=== PATIENT | female | born 1985 | race American Indian/Alaskan Native ===

== ENCOUNTER 2017-01-07 11:54 | Emergency (ER) | payer MEDICAID ==
[2017-01-07 12:06] VITALS: BP 191/132
[2017-01-07 12:47] LABS: Basophils % (Auto) 0.4 % (0.0-1.8); Eosinophils % (Auto) 3.8 % (0.0-4.3); Hemoglobin 13.2 gm/dl (10.1-14.3); Mean Corpuscular HGB Conc 34 % (30-34); Mean Corpuscular Hemoglobin 30 pg (28-32); Mean Corpuscular Volume 88 fl (79-97); Platelet Count 300 K/mm3 (140-440); Red Blood Count 4.42 M/mm3 (3.65-5.03); Red Cell Distribution Width 13.9 % (13.2-15.2); White Blood Count 9.8 K/mm3 (4.5-11.0)
[2017-01-07 13:01] LABS: Bilirubin,Urine NEG (Negative); Blood,Urine LG (Negative); Ketones,Urine NEG (Negative); Leukocyte Esterase,Urine NEG (Negative); Mucus,Urine FEW /HPF; Nitrite,Urine NEG (Negative); Urobilinogen,Urine < 2.0 mg/dL (<2.0)
[2017-01-07 13:04] LABS: RBC,Urine > 182.0 /HPF (0.0-6.0)
== END 2017-01-07 14:55 | disposition left against medical advice (07) ==
LOC: ED 11:54
DX: N93.9 Abnormal uterine and vaginal bleeding, unspecified (principal); I10 Essential (primary) hypertension; F17.200 Nicotine dependence, unspecified, uncomplicated; Z53.21 Procedure and treatment not carried out due to patient leaving prior to being seen by health care provider
CPT/HCPCS: 36415; 81001; 81025; 85025; 86850; 86900; 86901

== ENCOUNTER 2018-11-18 12:56 | Inpatient (IN) | payer MEDICAID ==
[2018-11-18] MEDS ORDERED: LACTATED RINGERS 500 ML IV ONE (13:23)
[2018-11-18] MEDS ORDERED: APRESOLINE IV ONE (13:49)
[2018-11-18 14:47] LABS: Hematocrit 32.1 % (30.3-42.9); Hemoglobin 11.2 gm/dl (10.1-14.3); Mean Corpuscular HGB Conc 35 % (30-34); Mean Corpuscular Volume 87 fl (79-97); Platelet Count 241 K/mm3 (140-440); Red Cell Distribution Width 13.5 % (13.2-15.2)
[2018-11-18 15:03] LABS: Alanine Aminotransferase 12 units/L (7-56); Uric Acid 3.7 mg/dL (3.5-7.6)
[2018-11-18] MEDS ORDERED: LACTATED RINGERS 1,000 ML ONE (16:57)
--- NOTE | 2018-11-18 16:57 | Ultrasound Report ---
FINAL REPORT PROCEDURE: US OB BPP WO NON-STRESS TECHNIQUE: Sonographic evaluation for breathing, movement, tone, and amniotic flui d volume was performed. CPT 00422 HISTORY: sharyn and efw COMPARISON: No prior studies are available for comparison. FINDINGS: There is a single living intrauterine gestation currently in the vertex presentation with a hea rt rate 146 beats per minute. Amniotic fluid volume: Normal-score 2. At least one vertical pocket > 2 cm or more in vertical axi s. breathing: Normal-score 2. movement: Normal-score 2. tone: Normal. Score: 8 of 8. IMPRESSION: Normal biophysical profile. 05/07
[2018-11-18 17:00] LABS: Bilirubin,Urine NEG (Negative); Blood,Urine NEG (Negative); Color,Urine Yellow (Yellow); Mucus,Urine FEW /HPF; Protein,Urine <15 mg/dL mg/dL (Negative); RBC,Urine < 1.0 /HPF (0.0-6.0)
[2018-11-18] MEDS: NORMODYNE PO SCH ×2 (17:00→21:57)
--- NOTE | 2018-11-18 17:07 | Ultrasound Report ---
FINAL REPORT PROCEDURE: US OB FOLLOW UP TECHNIQUE: Real-time limited sonographic examination was performed for evaluation of weight an d amniotic fluid index for each fetus with image documentation (1 or more fetuses). CPT 31329 HISTORY: sharyn and efw COMPARISON: No prior studies are available for comparison. FINDINGS: There is a single living intrauterine gestation currently visualized in the vertex presentation with a heart rate of 150 beats per minute. The amount of amniotic fluid subjectively appears low normal, t he amniotic fluid index 9.7 centimeters which is within normal limits. Placenta was not studied in de tail. The internal cervical os was not visualized. measurements were obtained. MEASUREMENTS BPD: 8.7 centimeter equals 34 week 6 days. HC: 31.5 centimeter equals 35 weeks 3 days. AC: 30.3 centimeter equals 34 week 2 days. FL: 6.5 centimeter equals 33 week 3 days. Estimated weight 2375 grams +/-352 grams equals 5 pounds 4 ounces plus or minus 12 ounce Detailed exam of the anatomy was not performed as this was not requested. IMPRESSION: Single living intrauterine gestation currently visualize vertex presentation. Average sonographic age by today's study 34 week 4 days[address] the EDC at 12/26/2018 plus or minus three weeks. Estima yinka weight as above. Subjectively and by amniotic fluid index the amount of amniotic fluid appe ars normal. Further evaluation was neither requested nor performed.
--- NOTE | 2018-11-18 17:08 | Ultrasound Report ---
FINAL REPORT PROCEDURE: US OB VELOCIMETRY UMBILCAL ART TECHNIQUE: Doppler evaluation of the umbilical artery was performed with color Doppler imaging and p ulse Doppler imaging. HISTORY: sharyn and efw COMPARISON: No prior studies are available for comparison. FINDINGS: Subjectively and by amniotic fluid index the amount of amniotic fluid appears normal. The amniotic fl uid index is 9.7 centimeters. Single living intrauterine gestation currently visualized in the vertex presentation. Systolic to diastolic ratio appears normal measuring 2.54. Resistive index normal clovis uring 0.6, good diastolic flow is visualized. heart rate of 150 beats per minute is detected. IMPRESSION: Doppler evaluation of the umbilical artery appear normal. Please see above parameters. Subjectively a nd by amniotic fluid index the amount of amniotic fluid appears normal.
[2018-11-18] MEDS ORDERED: AMBIEN PO PRN (19:17)
[2018-11-18] MEDS ORDERED: MAGNESIUM SULFATE 4GM/100ML 4 GM/100 ML BAG IV ONE (20:00)
[2018-11-18] MEDS: CELESTONE SOLUSPAN IM SCH (20:05)
[2018-11-18] MEDS: MAGNESIUM SULFATE 40GM/1000ML 40 GM/1,000 ML BAG IV SCH (20:06)
[2018-11-18] MEDS: TYLENOL PO PRN (21:56)
[2018-11-19] MEDS: TYLENOL PO PRN ×3 (02:01→20:55)
--- NOTE | 2018-11-19 05:53 | History and Physical Report ---
History of Present Illness Date of examination: 11/19/18 Date of admission: 11/18/18 13:23 Chief complaint: elevated BP History of present illness: This is a 33 yo EDC 12/24/18 here for elevated BP. She was seen on Saturday and noted to have elevated BP and sent to labor and delivery but did not come. katheryn has been non compliant throughout her missing appts from 19 weeks until 34 weeks. She has hx of obesity, cHTN. She has a hx of fibroids 4cm. She has been followed for SGA vs IUGR in June. She is a previous csec x 3. She was alos treated for trich in 06/2018. 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 denies: smoking, alcohol abuse, prescription drug abuse - Obstetrical History Expected Date of Delivery: 12/24/18 Actual Gestation: 35 Week(s) 0 Day(s) : 4 Para: 3 Hx # Term Pregnancies: 3 Number of Pregnancies: 0 Spontaneous Abortions: 0 Induced : 0 Number of Living Children: 3 Medications and Allergies Allergies Allergy/AdvReac Type Severity Reaction Status Date / Time No Known Allergies Allergy Verified 04/08/15 15:46 Home Medications Medication Instructions Recorded Confirmed Last Taken Type No Known Home Medications [No 01/07/17 01/07/17 Unknown History Reported Home Medications] Active Meds: Active Medications Acetaminophen (Tylenol) 500 mg PO Q4H PRN PRN Reason: Pain, Mild (1-3) Last Admin: 11/19/18 02:01 Dose: 500 mg Documented by: Betamethasone Acet/Betameth SodPhos (Celestone Soluspan) 12 mg IM Q24H AMANDA Stop: 11/19/18 20:01 Last Admin: 11/18/18 20:05 Dose: 12 mg Documented by: Magnesium Sulfate (Magnesium Sulfate 40gm/1000ml) 40 gm in 1,000 mls @ 50 mls/hr IV DIRECT AMANDA Last Admin: 11/18/18 20:06 Dose: 2 gm/hr, 50 mls/hr Documented by: Labetalol HCl (Normodyne) 200 mg PO BID AMANDA Last Admin: 11/18/18 21:57 Dose: 200 mg Documented by: Zolpidem Tartrate (Ambien) 10 mg PO QHS PRN PRN Reason: Insomnia Review of Systems All systems: negative - Vital Signs Vital signs: Vital Signs Pulse Pulse Ox 69 99 11/18/18 13:28 11/18/18 13:28 Temp Pulse Resp BP Pulse Ox 96.7 F L 98 H 18 140/91 98 11/18/18 20:26 11/19/18 05:42 11/19/18 02:01 11/19/18 05:30 11/19/18 05:42 - Physical Exam Breasts: Positive: normal Cardiovascular: Regular rate, Normal S1 Lungs: Positive: Clear to auscultation, Normal air movement Abdomen: Positive: normal appearance, soft, normal bowel sounds. Negative: distention, tenderness, guarding Genitourinary (Female): Positive: normal external genitalia, normal perenium Anus/Rectum: Positive: normal perianal skin Extremities: Positive: normal Deep Tendon Reflex Grade: Normal +2 - Obstetrical FHR: category 1 Uterine Contraction Monitor Mode: External Results Result Diagrams: 11/18/18 14:30 11/18/18 14:30 Abnormal lab results 11/18/18 11/18/18 Range/Units 14:30 14:30 MCHC 35 H (30-34) % Creatinine 0.6 L (0.7-1.2) mg/dL Lactate Dehydrogenase 222 H (91-180) units/L All other labs normal. Ultrasound: report reviewed Assessment and Plan A/P IUP 35 weeks cHTN assess for superimposed pree on labetolol labs sent for PIH mag started for BP check mag level US noted 2375g fetus [place] 9.7 BPP 8/8 doppler normal consulted with MFM spoke with Dr. ruiz : recommends betamethasone awaiting second dose close monirot of maternal and status
[2018-11-19] MEDS ORDERED: LACTATED RINGERS 1,000 ML ONE ×2 (09:32→20:02)
[2018-11-19] MEDS: NORMODYNE PO SCH (10:29)
--- NOTE | 2018-11-19 12:08 | Consultation ---
History of Present Illness Consult date: 11/19/18 Reason for consult: medical complication, other (CHTN) History of present illness: Ms. Wilson is a 33 yo EDC 12/24/18 admitted to [facility] due to CHTN. She has been a patient with [facility] for CHTN, Eclampsia hx, and Obesity history, but has been noncompliant with appointments and recommendations this . Her last appointment with [facility] was 08/19/19, where elevated BPs noted and it was recommended to pt to present to [facility] for management. She never presented to the hospital at that time. She was seen at primary OB office on 11/17/18 with elev ated BPs and hospitalization was recommended for BP management. She is currently receiving Magnesium Sulfate and Betamethasone x 1. 24 hour urine protein is in progress. She admits positive movements. She reports headaches and visual disturbances. She reports RUQ pain noted yesterday. She denies edema, contractions, leaking of fluid, and bleeding. 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 Family/Genetic History: hypertension - Obstetrical History : 4 Para: 3 Medications and Allergies Allergies Allergy/AdvReac Type Severity Reaction Status Date / Time No Known Allergies Allergy Verified 04/08/15 15:46 Home Medications Medication Instructions Recorded Confirmed Last Taken Type No Known Home Medications [No 01/07/17 01/07/17 Unknown History Reported Home Medications] Active Meds: Active Medications Acetaminophen (Tylenol) 500 mg PO Q4H PRN PRN Reason: Pain, Mild (1-3) Last Admin: 11/19/18 10:37 Dose: 500 mg Documented by: Betamethasone Acet/Betameth SodPhos (Celestone Soluspan) 12 mg IM Q24H AMANDA Stop: 11/19/18 20:01 Last Admin: 11/18/18 20:05 Dose: 12 mg Documented by: Magnesium Sulfate (Magnesium Sulfate 40gm/1000ml) 40 gm in 1,000 mls @ 50 mls/hr IV DIRECT AMANDA Last Admin: 11/18/18 20:06 Dose: 2 gm/hr, 50 mls/hr Documented by: Labetalol HCl (Normodyne) 200 mg PO BID AMANDA Last Admin: 11/19/18 10:29 Dose: 200 mg Documented by: Zolpidem Tartrate (Ambien) 10 mg PO QHS PRN PRN Reason: Insomnia Review of Systems Constitutional: other (denies fatigue, fevers) Eyes: other (Reports visual disturbances) Ears, nose, mouth and throat: deferred Cardiovascular: other (denies chest pain, sob, palpitations) Respiratory: other (deneis sob, coughing, wheezing) Breasts: deferred Gastrointestinal: other (denies diarrhea, constipation, nausea, ruq pain) Genitourinary: other (denies vaginal bleeding, leaking of fluid, and contractions) Rectal Exam: deferred Integumentary: deferred Neurological: headaches, other - Vital Signs Vital signs: Vital Signs Pulse Pulse Ox 69 99 11/18/18 13:28 11/18/18 13:28 Temp Pulse Resp BP Pulse Ox 98.2 F 95 H 16 144/86 98 11/19/18 09:00 11/19/18 11:34 11/19/18 07:00 11/19/18 11:34 11/19/18 09:46 - Physical Exam Breasts: Positive: deferred Cardiovascular: Regular rate, Normal S1, Normal S2, No murmurs Lungs: Positive: Clear to auscultation Abdomen: Positive: soft, other (gravid, nontender) Deep Tendon Reflex Grade: Normal but brisk +3 Results Result Diagrams: 11/18/18 14:30 11/18/18 14:30 Abnormal lab results 11/18/18 11/18/18 11/19/18 Range/Units 14:30 14:30 06:13 MCHC 35 H (30-34) % Creatinine 0.6 L (0.7-1.2) mg/dL Magnesium 5.20 H (1.7-2.3) mg/dL Lactate Dehydrogenase 222 H (91-180) units/L All other labs normal. Assessment and Plan A: Brown IUP at 35.0 weeks gestations Poorly controlled CHTN- managed on Labetalol 200mg BID- current BPs 130s/80s-90s to 150's/90s Noncompliant S/P ultrasound and BPP 8/8 Betamethasone x 1 completed Magnesium Sulfated infusion in progress 24 hour protein results pending Obesity Eclampsia hx x 3 hx Complaints of headaches, visual disturbances, and indigestion DTR- 3+ I discussed with patient maternal and outcomes if continued noncompliance noted with CHTN. She was informed that she is at increased risk for maternal CVA and increased risk for IUFD. Compliance with BP medication and appointments stressed to patient. She verbalized understanding. P: Continue with current plan of care Complete Betamethasone x 2, Magnesium Sulfate x 24hours Pending 24 hour urine results may determine if delivery is necessary at this time Monitor for worsening PIH symptoms Continuous monitoring Consult NICU in event of delivery Please perform umbilical doppler studies For additional questions or concerns, please contact compressor station chief engineer MD (Dr. Reza). Thank you for your consult.
[2018-11-19] MEDS ORDERED: ZOFRAN IV PRN (17:06)
[2018-11-19 19:51] LABS: Creatinine 24 Hour,Urine 1.7 (0.8-2.8); Creatinine,Urine 83.6 mg/dL (0.1-20.0)
[2018-11-19] MEDS: CELESTONE SOLUSPAN IM SCH (20:46)
[2018-11-20] MEDS: TYLENOL PO PRN ×2 (03:28→09:45)
[2018-11-20] MEDS: NORMODYNE PO SCH ×2 (10:20→23:53)
[2018-11-20] MEDS: MAGNESIUM SULFATE 40GM/1000ML 40 GM/1,000 ML BAG IV SCH (10:41)
[2018-11-20] MEDS ORDERED: REGLAN IV ONE (13:39)
[2018-11-20] MEDS ORDERED: BICITRA PO ONE (13:39)
[2018-11-20] MEDS ORDERED: PEPCID IV ONE ×2 (13:39→16:12)
[2018-11-20] MEDS ORDERED: PITOCin/NS 20 UNIT/1000ML DRIP 20 UNITS/1,000 ML BAG IV SCH ×2 (14:00→18:00)
[2018-11-20] MEDS ORDERED: LACTATED RINGERS 1,000 ML IV SCH (14:00)
--- NOTE | 2018-11-20 14:22 | Progress Note ---
Assessment and Plan - Patient Problems (1) Chronic hypertension with superimposed pre-eclampsia Current Visit: Yes Status: Acute Plan to address problem: will proceed with repeat delivery (2) Non compliance w medication regimen Current Visit: Yes Status: Acute Subjective - Subjective Date of service: 11/20/18 Interval history: 33y/o @ 35+1 weeks admitted for worsening chronic hypertension. Current labs indicate the patient has mild preeclampsia. The patient has not been compliant with her care. Secondary to the concern that patient may be lost to followup of her condition, it was advised the patient be delivered. She has declined sterilization. Objective - Vital Signs Vital Signs: Vital Signs - 12hr 11/20/18 11/20/18 11/20/18 02:27 02:32 02:34 Temperature Pulse Rate 95 H 92 H 94 H Respiratory Rate Blood Pressure 129/80 Blood Pressure [Right] O2 Sat by Pulse 95 96 Oximetry 11/20/18 11/20/18 11/20/18 02:37 02:42 02:47 Temperature Pulse Rate 91 H 91 H 90 Respiratory Rate Blood Pressure Blood Pressure [Right] O2 Sat by Pulse 96 97 97 Oximetry 11/20/18 11/20/18 11/20/18 02:52 02:57 03:02 Temperature Pulse Rate 90 87 80 Respiratory Rate Blood Pressure Blood Pressure [Right] O2 Sat by Pulse 98 98 98 Oximetry 11/20/18 11/20/18 11/20/18 03:26 03:31 03:34 Temperature Pulse Rate 95 H 107 H 92 H Respiratory Rate Blood Pressure 131/88 Blood Pressure [Right] O2 Sat by Pulse 98 97 Oximetry 11/20/18 11/20/18 11/20/18 03:36 03:39 03:41 Temperature 98.3 F Pulse Rate 89 90 Respiratory 16 Rate Blood Pressure Blood Pressure [Right] O2 Sat by Pulse 97 97 Oximetry 11/20/18 11/20/18 11/20/18 03:46 03:51 03:56 Temperature Pulse Rate 90 91 H 89 Respiratory Rate Blood Pressure Blood Pressure [Right] O2 Sat by Pulse 97 98 97 Oximetry 11/20/18 11/20/18 11/20/18 04:01 04:06 04:11 Temperature Pulse Rate 90 89 91 H Respiratory Rate Blood Pressure Blood Pressure [Right] O2 Sat by Pulse 97 97 97 Oximetry 11/20/18 11/20/18 11/20/18 04:16 04:21 04:25 Temperature Pulse Rate 88 86 95 H Respiratory Rate Blood Pressure Blood Pressure [Right] O2 Sat by Pulse 97 97 94 Oximetry 11/20/18 11/20/18 11/20/18 04:26 04:31 04:32 Temperature Pulse Rate 94 H 86 93 H Respiratory Rate Blood Pressure Blood Pressure [Right] O2 Sat by Pulse 96 96 94 Oximetry 11/20/18 11/20/18 11/20/18 04:36 04:41 04:44 Temperature Pulse Rate 99 H 85 92 H Respiratory Rate Blood Pressure Blood Pressure [Right] O2 Sat by Pulse 98 96 92 Oximetry 11/20/18 11/20/18 11/20/18 04:46 04:49 04:51 Temperature Pulse Rate 92 H 93 H 93 H Respiratory Rate Blood Pressure Blood Pressure [Right] O2 Sat by Pulse 95 94 95 Oximetry 11/20/18 11/20/18 11/20/18 04:55 04:56 05:01 Temperature Pulse Rate 92 H 91 H 92 H Respiratory Rate Blood Pressure Blood Pressure [Right] O2 Sat by Pulse 94 95 94 Oximetry 11/20/18 11/20/18 11/20/18 05:06 05:11 05:13 Temperature Pulse Rate 92 H 94 H 94 H Respiratory Rate Blood Pressure Blood Pressure [Right] O2 Sat by Pulse 94 95 94 Oximetry 11/20/18 11/20/18 11/20/18 05:16 05:18 05:21 Temperature Pulse Rate 94 H 96 H 96 H Respiratory Rate Blood Pressure Blood Pressure [Right] O2 Sat by Pulse 94 94 94 Oximetry 11/20/18 11/20/18 11/20/18 05:26 05:31 05:32 Temperature Pulse Rate 95 H 97 H 91 H Respiratory Rate Blood Pressure Blood Pressure [Right] O2 Sat by Pulse 94 95 92 Oximetry 11/20/18 11/20/18 11/20/18 05:34 05:36 05:38 Temperature Pulse Rate 107 H 94 H 93 H Respiratory Rate Blood Pressure 133/66 Blood Pressure [Right] O2 Sat by Pulse 96 94 Oximetry 11/20/18 11/20/18 11/20/18 05:41 05:43 05:46 Temperature Pulse Rate 97 H 98 H 93 H Respiratory Rate Blood Pressure Blood Pressure [Right] O2 Sat by Pulse 94 94 96 Oximetry 11/20/18 11/20/18 11/20/18 05:48 05:51 05:54 Temperature Pulse Rate 97 H 92 H 108 H Respiratory Rate Blood Pressure Blood Pressure [Right] O2 Sat by Pulse 93 95 94 Oximetry 11/20/18 11/20/18 11/20/18 05:56 06:01 06:03 Temperature Pulse Rate 92 H 95 H 95 H Respiratory Rate Blood Pressure Blood Pressure [Right] O2 Sat by Pulse 95 96 94 Oximetry 11/20/18 11/20/18 11/20/18 06:06 06:09 06:11 Temperature Pulse Rate 94 H 95 H 91 H Respiratory Rate Blood Pressure Blood Pressure [Right] O2 Sat by Pulse 95 94 95 Oximetry 11/20/18 11/20/18 11/20/18 06:16 06:21 06:26 Temperature Pulse Rate 82 91 H 102 H Respiratory Rate Blood Pressure Blood Pressure [Right] O2 Sat by Pulse 90 96 94 Oximetry 11/20/18 11/20/18 11/20/18 06:31 06:34 06:36 Temperature Pulse Rate 100 H 106 H 90 Respiratory Rate Blood Pressure 115/77 Blood Pressure [Right] O2 Sat by Pulse 94 92 Oximetry 11/20/18 11/20/18 11/20/18 06:41 06:46 06:51 Temperature Pulse Rate 95 H 98 H 100 H Respiratory Rate Blood Pressure Blood Pressure [Right] O2 Sat by Pulse 96 96 96 Oximetry 11/20/18 11/20/18 11/20/18 06:56 07:01 07:06 Temperature Pulse Rate 97 H 98 H 95 H Respiratory Rate Blood Pressure Blood Pressure [Right] O2 Sat by Pulse 95 95 94 Oximetry 11/20/18 11/20/18 11/20/18 07:11 07:16 07:21 Temperature Pulse Rate 96 H 97 H 97 H Respiratory Rate Blood Pressure Blood Pressure [Right] O2 Sat by Pulse 95 94 95 Oximetry 11/20/18 11/20/18 11/20/18 07:22 07:26 07:29 Temperature Pulse Rate 98 H 100 H 98 H Respiratory Rate Blood Pressure Blood Pressure [Right] O2 Sat by Pulse 94 94 94 Oximetry 11/20/18 11/20/18 11/20/18 07:31 07:34 07:36 Temperature Pulse Rate 96 H 89 104 H Respiratory Rate Blood Pressure 126/75 Blood Pressure [Right] O2 Sat by Pulse 95 97 Oximetry 11/20/18 11/20/18 11/20/18 07:41 07:46 07:51 Temperature Pulse Rate 91 H 104 H 88 Respiratory Rate Blood Pressure Blood Pressure [Right] O2 Sat by Pulse 94 98 97 Oximetry 11/20/18 11/20/18 11/20/18 07:56 08:01 08:25 Temperature Pulse Rate 82 91 H 101 H Respiratory Rate Blood Pressure Blood Pressure [Right] O2 Sat by Pulse 98 98 99 Oximetry 11/20/18 11/20/18 11/20/18 08:30 08:35 09:29 Temperature Pulse Rate 98 H 97 H 96 H Respiratory Rate Blood Pressure 148/98 Blood Pressure [Right] O2 Sat by Pulse 98 97 Oximetry 11/20/18 11/20/18 11/20/18 09:41 09:55 10:12 Temperature 96.3 F L Pulse Rate 100 H 85 93 H Respiratory 16 Rate Blood Pressure 151/93 170/87 Blood Pressure 148/94 [Right] O2 Sat by Pulse 98 Oximetry 11/20/18 11/20/18 11/20/18 10:14 10:20 10:23 Temperature Pulse Rate 98 H 98 H 94 H Respiratory Rate Blood Pressure 156/82 156/82 166/87 Blood Pressure [Right] O2 Sat by Pulse Oximetry 11/20/18 11/20/18 11/20/18 10:34 11:04 11:34 Temperature Pulse Rate 88 90 87 Respiratory Rate Blood Pressure 152/76 143/80 155/91 Blood Pressure [Right] O2 Sat by Pulse Oximetry 11/20/18 12:04 Temperature Pulse Rate 92 H Respiratory Rate Blood Pressure 191/108 Blood Pressure [Right] O2 Sat by Pulse Oximetry - Labs Labs: Abnormal Labs 11/18/18 11/18/18 11/19/18 14:30 14:30 06:13 MCHC 35 H Creatinine 0.6 L Magnesium 5.20 H Lactate Dehydrogenase 222 H Urine Creatinine Ur Total Protein 24 Hr Urine Total Protein 11/19/18 18:30 MCHC Creatinine Magnesium Lactate Dehydrogenase Urine Creatinine 83.6 H Ur Total Protein 24 Hr 328.00 H Urine Total Protein 16 H Laboratory Results - last 24 hr 11/19/18 18:30 Urine Total Volume 2050 Urine Creatinine 83.6 H Ur Creatinine 24 Hour 1.7 Ur Total Protein 24 Hr 328.00 H Urine Total Protein 16 H
[2018-11-20] MEDS ORDERED: ceFAZolin 2 GM in NACL 0.9% 100 ML IV ONE (14:26)
[2018-11-20] MEDS ORDERED: ANCEF/STERILE WATER 2 GM/20 ML 2 GM/20 ML SYRINGE IV SCH (15:00)
[2018-11-20] MEDS ORDERED: BICITRA ONE (16:11)
[2018-11-20] MEDS ORDERED: REGLAN ONE ×2 (16:12→16:46)
[2018-11-20] MEDS ORDERED: ANCEF ONE (16:57)
[2018-11-20] MEDS ORDERED: TUCKS PAD TP PRN (17:16)
[2018-11-20] MEDS ORDERED: TORADOL IV PRN (17:16)
[2018-11-20] MEDS ORDERED: MORPHINE IV PRN (17:16)
[2018-11-20] MEDS ORDERED: LANSINOH TP PRN (17:16)
[2018-11-20] MEDS ORDERED: TYLENOL PO PRN (17:16)
[2018-11-20] MEDS ORDERED: NARCAN 0.4 MG/1 ML IV PRN ×2 (17:16→20:03)
--- NOTE | 2018-11-20 17:16 | Procedure Note ---
OB Delivery Note - Delivery Date of Delivery: 11/20/18 Surgeon: NANCY PEREYRA Estimated blood loss: other (800ml) - Section Preop diagnosis: repeat Postop diagnosis: same section procedure: section, repeat low transverse Disposition: PACU Complications: none - Infant A at 1 minute: 8 at 5 minutes: 2 Infant Gender: Male (apgars of 8/2/7; weight 5lbs 0oz)
[2018-11-20] MEDS ORDERED: DIPRIVAN 10 MG/ML IV ONE (17:31)
[2018-11-20] MEDS ORDERED: ANCEF/STERILE WATER 2 GM/20 ML IV ONE (17:38)
[2018-11-20] MEDS ORDERED: NACL 0.9% IR ONE (17:42)
[2018-11-20] MEDS ORDERED: WATER FOR IRRIG STERILE IR ONE (17:42)
[2018-11-20] MEDS ORDERED: QUELICIN ONE (17:47)
[2018-11-20] MEDS ORDERED: XYLOCAINE MPF 2% ONE (17:48)
[2018-11-20] MEDS ORDERED: ZOFRAN ONE (17:48)
[2018-11-20] MEDS ORDERED: ZEMURON IV ONE (17:48)
[2018-11-20] MEDS ORDERED: NEO SYNEPHRINE ONE (17:49)
[2018-11-20] MEDS ORDERED: TORADOL ONE (17:49)
[2018-11-20] MEDS ORDERED: SODIUM CHLORIDE FLUSH SYRINGE 10 ML IV NR ×2 (18:00→21:00)
[2018-11-20] MEDS ORDERED: D5LR 1,000 ML IV SCH (18:00)
[2018-11-20] MEDS ORDERED: DILAUDID ONE (18:13)
[2018-11-20] MEDS ORDERED: SUBLIMAZE ONE (18:20)
--- NOTE | 2018-11-20 18:32 | Operative Report ---
Operative Report Operative Report: Date of surgery: 11/20/2018 Preoperative diagnosis: at 35+2 weeks; chronic hypertension with superimposed preeclampsia; noncompliant with care Postoperative diagnosis: Same as above Procedure: Repeat low-transverse delivery; lysis of adhesions Surgeon: Earnestine Watkins M.D. Anesthesia: General endotracheal anesthesia Estimated blood loss: 800 mL IV fluids: 1100 mL Urine output: 300 mL Findings: A liveborn male infant with Apgars of 8 at 1 minute 2 at 5 minutes 7 at 10 minutes; weight of 5 lbs. 0 oz. Indications: 33-year-old at 35+2 weeks who presents with chronic hypertension and found to have superimposed preeclampsia. The patient's been noncompliant with her care. It was advised to proceed with delivery. Procedure: The patient was taken to the operating room and given general anesthesia secondary to failure of the regional anesthesia. She was prepped and draped in a normal sterile fashion. The patient was prepped and draped prior to induction of the general anesthesia. A Pfannenstiel skin incision was made down to layer the fascia which was nicked in the midline extended laterally with the Bovie cautery. The facia was noted to be significantly thickened. The superior aspect of the rectus fascia was grasped with Albert clamps x2 and the rectus muscles off sharply. This was done in inferior fashion as well. The rectus muscle midline with sharp dissection secondary to the adherent tissue and peritoneum entered bluntly. Multiple adhesions of the anterior uterus to the peritoneum and rectus muscle had to be sharply dissected. An Lionel retractor was then inserted. A bladder blade was placed. The vesicouterine peritoneum was then entered sharply with Metzenbaum scissors. A bladder flap was created digitally. A low transverse uterine incision was then made and extended digitally. There was clear fluid upon entry into the uterine cavity. The head was delivered through the incision with fundal pressure. The cord was clamped and cut x2 and infant was passed off to pediatrics. The placenta was then manually extracted. The uterus was then exteriorized and cleared of clots and debris. The uterine incision was then closed in a running locked fashion with 0 Vicryl additional imbricating stitch was applied for 2 layer closure. Surgicel was placed over the uterine incision. The posterior cul-de-sac was then copiously irrigated. The uterus was replaced back into the abdomen and pelvis were the gutters were then irrigated. The Lionel retractor was then removed. The peritoneum was then reapproximated with 3-0 Vicryl incorporating the rectus muscle. The fascia was then closed with 0 Vicryl in a running fashion. The skin was then reapproximated with 3-0 Monocryl on a Gary needle subcuticular fashion. Steri-Strips to place across the incision and a Crede procedures performed at the end of the surgery. A pressure dressing was applied to the incision. The surgery productive of a liveborn male with Apgars of 8, 2 and 7. weight was 5 lbs. 0 oz. The patient was taken to the recovery room in stable condition. All sponge laps and needle counts correct x2.
[2018-11-20] MEDS: DILAUDID IV PRN ×2 (19:06→19:20)
--- NOTE | 2018-11-20 20:02 | Anesthesia Day of Surgery ---
Anesthesia Day of Surgery - Day of Surgery Patient Examined: Yes Patient H&P Reviewed: Yes Patient is NPO: Yes Beta Blockers: No Cardiac Clearance: No Pulmonary Clearance: No Juan's Test: N/A
[2018-11-20] MEDS ORDERED: ZOFRAN IV PRN (20:03)
[2018-11-20] MEDS ORDERED: PHENERGAN PR PRN (20:03)
[2018-11-20] MEDS ORDERED: PHENERGAN PO PRN (20:03)
--- NOTE | 2018-11-20 20:06 | Anesthesia Consultation ---
Anesthesia Consult and Med Hx - Airway Anesthetic Teeth Evaluation: Good ROM Head & Neck: Adequate Mental/Hyoid Distance: Adequate Mallampati Class: Class I Intubation Access Assessment: Good - Pulmonary Exam CTA: Yes - Cardiac Exam Cardiac Exam: RRR - Pre-Operative Health Status ASA Pre-Surgery Classification: ASA3 Proposed Anesthetic Plan: General - Pulmonary Hx Smoking: No Hx Asthma: No Hx Respiratory Symptoms: No SOB: No COPD: No Home Oxygen Therapy: No Hx Pneumonia: No Hx Sleep Apnea: No - Cardiovascular System Hx Hypertension: Yes (pih) Hx Coronary Artery Disease: No Hx Heart Attack/AMI: No Hx Angina: No Hx Percutaneous Transluminal Coronary Angioplasty (PTCA): No Hx Cardia Arrhythmia: No Hx Pacemaker: No Hx Internal Defibrillator: No Hx Valvular Heart Disease: No Hx Heart Murmur: No Hx Peripheral Vascular Disease: No - Central Nervous System Hx Neuromuscular Disorder: No Hx Seizures: Yes (last one 16yrs ago) CVA: No Hx Back Pain: No Hx Psychiatric Problems: No - Gastrointestinal Hx Ulcer: No Hx Gastroesophageal Reflux Disease: No - Endocrine Hx Renal Disease: No Hx Cirrhosis: No Hx Liver Disease: No Hx Insulin Dependent Diabetes: No Hx Non-Insulin Dependent Diabetes: No Hx Thyroid Disease: No Hx Hypothyroidism: No Hx Hyperthyroidism: No - Hematic Hx Anemia: No Hx Sickle Cell Disease: No - Other Systems Hx Alcohol Use: No Hx Substance Use: No Hx Cancer: No Hx Obesity: No
--- NOTE | 2018-11-20 20:07 | Post Anesthesia Evaluation ---
- Post Anesthesia Evaluation Patient Participated: Yes Airway Patent: Yes Stable Respiratory Function: Yes Nausea/Vomiting: No Temp > 96.8F: Yes Pain Manageable: Yes Adequeate Hydration: Yes Anesthesia Complications: No Block Receding Appropriately: Not Applicable Patient on Ventilator: No
[2018-11-21] MEDS: NORMODYNE IV PRN ×3 (01:15→21:37)
[2018-11-21 06:15] LABS: Hemoglobin 9.9 gm/dl (10.1-14.3)
[2018-11-21] MEDS ORDERED: NORMODYNE IV NR (07:51)
--- NOTE | 2018-11-21 08:39 | Progress Note ---
Assessment and Plan A/P POD1 s/p repeat csec for chronic HTN with superimposed pree on mag for 24 hrs IV labetolol (out of stock of hydralazine as needed for BP0 anti-hypertensive routine Postop orders continue to closely monitor BP Subjective - Subjective Date of service: 11/21/18 Principal diagnosis: s/p repeat csec , chronic htn with superimposed pree Interval history: This is a 33 yo EDC 12/24/18 here for elevated BP. She was seen on Saturday and noted to have elevated BP and sent to labor and delivery but did not come. katheryn has been non compliant throughout her missing appts from 19 weeks until 34 weeks. She has hx of obesity, cHTN. She has a hx of fibroids 4cm. She has been followed for SGA vs IUGR in June. She is a previous csec x 3. She was alos treated for trich in 06/2018. Patient reports: appetite normal, voiding normally, pain well controlled : doing well Objective - Vital Signs Latest vital signs: Vital Signs Temp Pulse Resp BP BP Pulse Ox 11/21/18 08:34 77 143/86 11/21/18 08:29 75 145/86 11/21/18 08:24 75 141/83 11/21/18 08:19 74 140/86 11/21/18 08:14 75 135/87 11/21/18 08:11 76 140/91 11/21/18 08:08 76 147/94 11/21/18 08:05 75 181/107 11/21/18 08:02 18 11/21/18 07:44 97.6 F 75 18 181/107 11/21/18 07:40 75 181/107 11/21/18 06:38 74 175/106 11/21/18 06:08 72 162/98 11/21/18 05:38 77 164/95 11/21/18 05:08 71 186/108 11/21/18 04:38 75 164/99 11/21/18 04:08 75 169/103 11/21/18 04:03 97.6 F 18 11/21/18 03:38 84 147/88 11/21/18 03:09 75 177/102 11/21/18 02:38 76 142/92 11/21/18 02:08 79 155/68 11/21/18 01:38 82 155/101 11/21/18 01:27 82 148/97 11/21/18 01:15 80 164/94 11/21/18 01:09 80 164/94 11/21/18 00:39 83 165/90 11/21/18 00:32 97.8 F 11/21/18 00:08 79 200/102 11/21/18 00:04 82 192/112 11/20/18 23:36 83 180/98 11/20/18 23:34 85 208/114 11/20/18 20:40 96.0 F L 20 11/20/18 19:49 82 151/93 11/20/18 19:40 97.9 F 84 20 132/78 96 11/20/18 19:30 81 22 134/84 96 11/20/18 19:15 79 22 128/72 97 11/20/18 19:10 80 20 133/82 96 11/20/18 19:05 82 22 123/74 96 11/20/18 19:00 82 24 123/75 98 11/20/18 18:55 84 22 122/73 97 11/20/18 18:50 84 22 119/68 96 11/20/18 18:45 88 24 116/69 97 11/20/18 18:40 97.6 F 88 25 H 115/70 96 11/20/18 16:35 81 154/85 11/20/18 16:33 81 165/97 11/20/18 16:32 82 170/98 11/20/18 16:28 98.7 F 92 H 22 152/89 98 11/20/18 13:00 98.3 F 92 H 16 152/92 98 11/20/18 12:04 92 H 191/108 11/20/18 12:00 98.3 F 92 H 16 151/91 98 11/20/18 11:34 87 155/91 11/20/18 11:04 90 143/80 11/20/18 10:34 88 152/76 11/20/18 10:23 94 H 166/87 11/20/18 10:20 98 H 156/82 11/20/18 10:14 98 H 156/82 11/20/18 10:12 93 H 170/87 11/20/18 09:55 96.3 F L 85 16 148/94 98 11/20/18 09:41 100 H 151/93 11/20/18 09:29 96 H 148/98 Intake and Output 11/20/18 11/21/18 11/21/18 23:59 07:59 15:59 Intake Total 1800 Output Total 2600 2800 Balance -800 -2800 Intake: IV 1350 Oral 450 Output: Urine 2600 2800 Indwelling Catheter 2000 2800 Other: Total, Intake Amount 450 Total, Output Amount 2000 800 # Voids Indwelling Catheter 1 - Exam Breasts: Present: normal Cardiovascular: Present: Regular rate, Normal S1 Lungs: Present: Clear to auscultation, Normal air movement Abdomen: Present: normal appearance, soft, normal bowel sounds. Absent: distention, tenderness, guarding Uterus: Present: normal, firm, fundal height below umbilicus. Absent: bogginess, tenderness Extremities: Present: normal Deep Tendon Reflex Grade: Normal +2 Incision: Present: normal, dry, intact - Labs Labs: Abnormal lab results 11/21/18 11/21/18 Range/Units 06:03 07:12 Hgb 9.9 L (10.1-14.3) gm/dl Hct 29.0 L (30.3-42.9) % Magnesium 5.80 H (1.7-2.3) mg/dL
[2018-11-21] MEDS: NORMODYNE PO SCH ×2 (09:58→22:33)
[2018-11-21] MEDS: MAGNESIUM SULFATE 40GM/1000ML 40 GM/1,000 ML BAG IV SCH (16:28)
--- NOTE | 2018-11-21 17:31 | Consultation ---
History of Present Illness - Reason for Consult Consult date: 11/21/18 HTN Requesting physician: CARO VILLAFANA - History of Present Illness 33 YO Female with Obesity, HTN, Seizure Disorder, Noncompliance. Consult placed by Dr. Villafana for HTN. Pt seen and evaluated in her room. Pt denies fever, chills, CP, Palpitations, NVD, Trauma, Syncope, Skin Rash, or recent ill co ntacts. No reported nursing events. Past History Past Medical History: hypertension, seizures, other (Obesity) Past Surgical History: Social history: single. denies: smoking, alcohol abuse, prescription drug abuse Family history: hypertension Medications and Allergies Allergies Allergy/AdvReac Type Severity Reaction Status Date / Time No Known Allergies Allergy Verified 04/08/15 15:46 Home Medications Medication Instructions Recorded Confirmed Last Taken Type No Known Home Medications [No 01/07/17 01/07/17 Unknown History Reported Home Medications] Active Meds: Active Medications Acetaminophen (Tylenol) 650 mg PO Q4H PRN PRN Reason: Fever >100.5/PORTER Magnesium Sulfate (Magnesium Sulfate 40gm/1000ml) 40 gm in 1,000 mls @ 50 mls/hr IV DIRECT AMANDA Last Admin: 11/21/18 16:28 Dose: 2 gm/hr, 50 mls/hr Documented by: Oxytocin/Sodium Chloride (Pitocin/Ns 20 Unit/1000ml Drip) 20 units in 1,000 mls @ 0 mls/hr IV TITR [facility] Last Admin: 11/21/18 09:33 Dose: 75 mls/hr Documented by: Dextrose/Lactated Ringer's ([email or web address]) 1,000 mls @ 125 mls/hr IV DIRECT AMANDA Oxytocin/Sodium Chloride (Pitocin/Ns 20 Unit/1000ml Drip) 20 units in 1,000 mls @ 250 mls/hr IV DIRECT AMANDA Ibuprofen (Motrin) 800 mg PO Q6H PRN PRN Reason: Pain, Mild (1-3) Ketorolac Tromethamine (Toradol) 30 mg IV Q6H PRN PRN Reason: Pain, Moderate (4-6) Stop: 11/25/18 17:15 Last Admin: 11/20/18 23:54 Dose: 30 mg Documented by: Labetalol HCl (Normodyne) 200 mg PO BID [facility] Last Admin: 11/21/18 09:58 Dose: 200 mg Documented by: Labetalol HCl (Normodyne) 20 mg IV Q3H PRN PRN Reason: Hypertension Last Admin: 11/21/18 05:55 Dose: 20 mg Documented by: Morphine Sulfate (Morphine) 2 mg IV Q4H PRN PRN Reason: Pain, Moderate (4-6) Last Admin: 11/21/18 08:02 Dose: 2 mg Documented by: Multi-Ingredient Ointment (Lansinoh) 1 applic TP PRN PRN PRN Reason: dryness/cracking Naloxone HCl (Narcan 0.4 Mg/1 Ml) 0.2 mg IV Q2MIN PRN PRN Reason: Res Rate </= 8 or 02 SAT < 92% Ondansetron HCl (Zofran) 4 mg IV Q8H PRN PRN Reason: Nausea And Vomiting Oxycodone/Acetaminophen (Percocet 5/325) 2 tab PO Q4H PRN PRN Reason: Pain, Moderate (4-6) Promethazine HCl (Phenergan) 25 mg PO Q6H PRN PRN Reason: Nausea And Vomiting Promethazine HCl (Phenergan) 25 mg OK Q6H PRN PRN Reason: Nausea And Vomiting Sodium Chloride (Sodium Chloride Flush Syringe 10 Ml) 10 ml IV PRN NR Stop: 11/21/18 20:59 Witch Tina/Glycerin (Tucks Pad) 1 each TP PRN PRN PRN Reason: Hemorrhoids/cleansing/soothing Zolpidem Tartrate (Ambien) 10 mg PO QHS PRN PRN Reason: Insomnia Review of Systems Constitutional: no weight loss, no weight gain, no fever, no chills Ears, nose, mouth and throat: no ear pain, no ear discharge, no tinnitis, no decreased hearing, no nose pain Breasts: no change in shape, no swelling, no mass Cardiovascular: no chest pain, no orthopnea, no palpitations, no rapid/irregular heart beat, no edema Respiratory: no cough, no cough with sputum, no excessive sputum, no hemoptysis, no shortness of breath Gastrointestinal: no nausea, no vomiting, no diarrhea, no constipation Genitourinary Female: no dysmenorrhea, no pelvic pain, no flank pain, no menorrhagia Rectal: no pain, no incontinence, no bleeding Musculoskeletal: no neck stiffness, no neck pain, no shooting arm pain, no arm numbness/tingling, no low back pain Integumentary: no rash, no pruritis, no redness, no sores, no wounds Neurological: no transient paralysis, no paralysis, no weakness, no tingling, no seizures Psychiatric: no memory loss, no change in sleep habits, no sleep disturbances, no insomnia, no hypersomnia, no change in appetite Endocrine: no cold intolerance, no heat intolerance, no polyphagia, no excessive thirst, no polydipsia, no polyuria Hematologic/Lymphatic: no easy bruising, no easy bleeding, no lymphadenopathy, no lymphedema Allergic/Immunologic: no urticaria, no allergic rhinitis, no wheezing, no persistent infections, no anaphylaxis Exam - Constitutional Vitals: Temp Pulse Resp BP Pulse Ox 98.4 F 93 H 18 159/100 96 11/21/18 16:09 11/21/18 16:50 11/21/18 16:09 11/21/18 16:50 11/20/18 19:40 General appearance: Present: no acute distress, well-nourished, obese - EENT Eyes: Present: PERRL ENT: hearing intact, clear oral mucosa - Neck Neck: Present: supple, normal ROM - Respiratory Respiratory effort: normal Respiratory: bilateral: CTA - Cardiovascular Heart Sounds: Present: S1 & S2. Absent: rub, click - Extremities Extremities: pulses symmetrical, No edema Peripheral Pulses: within normal limits - Abdominal General gastrointestinal: Present: soft, non-tender, non-distended, normal bowel sounds Female genitourinary: Present: normal - Integumentary Integumentary: Present: clear, warm, dry - Musculoskeletal Musculoskeletal: gait normal, strength equal bilaterally - Psychiatric Psychiatric: appropriate mood/affect, intact judgment & insight - Neurologic Neurologic: CNII-XII intact, moves all extremities Results - Labs CBC & Chem 7: 11/21/18 06:03 11/18/18 14:30 Labs: Abnormal lab results 11/21/18 11/21/18 Range/Units 06:03 07:12 Hgb 9.9 L (10.1-14.3) gm/dl Hct 29.0 L (30.3-42.9) % Magnesium 5.80 H (1.7-2.3) mg/dL Assessment and Plan - Patient Problems (1) HTN (hypertension) Current Visit: Yes Status: Acute Qualifiers: Hypertension type: essential hypertension Qualified Code(s): I10 - Essential (primary) hypertension Plan to address problem: Monitor BP q shift, continue B Tunde therpay, add Calcium Channel tunde as clinically indicated for increased antihypertensive control. (2) Obesity Current Visit: Yes Status: Acute Qualifiers: Body mass index: BMI 45.0-49.9 Plan to address problem: Balanced diet, increased physical activity at discharge.
[2018-11-21] MEDS ORDERED: LACTATED RINGERS 500 ML IV ONE (19:24)
[2018-11-21] MEDS: IBUPROFEN PO PRN (20:59)
[2018-11-21] MEDS: PERCOCET 5/325 PO PRN (21:00)
[2018-11-21] MEDS ORDERED: APRESOLINE PO PRN (23:34)
--- NOTE | 2018-11-21 23:50 | Event Note ---
Date: 11/21/18 PATIENT SEEN AND EXAMINED NO SYMPTOMS , LAST BP 149/81 WITH PULSE OF 81. PLAN; 1. WILL ADD HYDRALAZINE PO 25MG Q8H FOR BP OF 150/90 OR MORE TO BE GIVEN 30 MINUTES AFTER I.V LABETALOL HAS BEEN GIVEN AND BP NOT CONTROLLED. I.V HYDRALAZINE NOT AVAILABLE, ON BACK ORDER PER PHARMACY. 2. WILL CONTINUE TO MONITOR PER CONSULT REQUIRMENT.
[2018-11-22] MEDS: PERCOCET 5/325 PO PRN ×2 (03:07→22:57)
[2018-11-22] MEDS: IBUPROFEN PO PRN ×4 (03:07→22:58)
[2018-11-22] MEDS: NORMODYNE PO SCH ×2 (10:15→22:33)
--- NOTE | 2018-11-22 10:33 | Progress Note ---
Assessment and Plan A/P POD2 s/p repeat csec for chronic HTN with superimposed pree s/p mag for 24 hrs IV labetolol (out of stock of hydralazine ) anti-hypertensive to be continued appreciate hospitalization mgt and assistance with uncontrolled BP routine Postop orders continue to closely monitor BP Subjective - Subjective Date of service: 11/22/18 Principal diagnosis: s/p repeat csec , chronic htn with superimposed pree Interval history: This is a 33 yo EDC 12/24/18 here for elevated BP. She was seen on Saturday and noted to have elevated BP and sent to labor and delivery but did not come. katheryn has been non compliant throughout her missing appts from 19 weeks until 34 weeks. She has hx of obesity, cHTN. She has a hx of fibroids 4cm. She has been followed for SGA vs IUGR in June. She is a previous csec x 3. She was alos treated for trich in 06/2018. Patient reports: appetite normal, voiding normally, pain well controlled, ambulating normally [place]: doing well Objective - Vital Signs Latest vital signs: Vital Signs Temp Pulse Resp BP BP 11/22/18 10:16 20 11/22/18 08:30 98.6 F 63 20 156/90 11/22/18 06:41 78 157/81 11/22/18 06:38 72 188/99 11/22/18 05:34 70 157/88 11/22/18 05:08 90 105/55 11/22/18 04:35 75 170/94 11/22/18 03:25 75 157/79 11/22/18 03:10 82 169/88 11/22/18 00:35 98.1 F 78 150/81 11/21/18 22:33 81 149/81 11/21/18 22:31 81 149/81 11/21/18 22:26 76 147/80 11/21/18 22:21 85 154/81 11/21/18 22:11 84 141/90 11/21/18 21:40 83 174/97 11/21/18 21:37 83 174/97 11/21/18 21:05 82 195/108 11/21/18 21:00 98.3 F 80 183/103 11/21/18 18:18 93 H 159/88 11/21/18 16:50 93 H 159/100 11/21/18 16:20 90 132/81 11/21/18 16:09 98.4 F 90 18 141/87 141/87 11/21/18 15:20 95 H 147/82 11/21/18 14:50 94 H 132/75 11/21/18 14:20 84 154/82 11/21/18 13:50 79 133/84 11/21/18 13:20 90 134/82 11/21/18 12:50 85 140/86 11/21/18 12:28 97.5 F L 92 H 18 173/98 11/21/18 12:20 92 H 173/98 11/21/18 11:20 82 161/97 11/21/18 10:50 77 163/100 Intake and Output 11/21/18 11/22/18 11/22/18 23:59 07:59 15:59 Intake Total 1080 120 Output Total 1700 700 Balance -620 -700 120 Intake: Oral 1080 120 Output: Urine 1700 700 Indwelling Catheter 700 Void 1000 700 Other: Total, Intake Amount 1080 120 Total, Output Amount 550 700 # Voids Void 1 - Exam Breasts: Present: normal Cardiovascular: Present: Regular rate, Normal S1 Lungs: Present: Clear to auscultation, Normal air movement Abdomen: Present: normal appearance, soft, normal bowel sounds. Absent: distention, tenderness, guarding Uterus: Present: normal, firm, fundal height below umbilicus. Absent: bogginess, tenderness Extremities: Present: normal Deep Tendon Reflex Grade: Normal +2 Incision: Present: normal, dry, dressed
--- NOTE | 2018-11-23 08:48 | Progress Note ---
Assessment and Plan A/P POD3 s/p repeat csec for chronic HTN with superimposed pree s/p mag for 24 hrs IV labetolol (out of stock of hydralazine ) anti-hypertensive to be continued appreciate hospitalization mgt and assistance with uncontrolled BP routine Postop orders continue to closely monitor BP Subjective - Subjective Date of service: 11/23/18 Principal diagnosis: s/p repeat csec , chronic htn with superimposed pree Interval history: This is a 33 yo EDC 12/24/18 here for elevated BP. She was seen on Saturday and noted to have elevated BP and sent to labor and delivery but did not come. katheryn has been non compliant throughout her missing appts from 19 weeks until 34 weeks. She has hx of obesity, cHTN. She has a hx of fibroids 4cm. She has been followed for SGA vs IUGR in June. She is a previous csec x 3. She was alos treated for trich in 06/2018. Patient reports: appetite normal, voiding normally, pain well controlled, flatus, ambulating normally [place]: doing well Objective - Vital Signs Latest vital signs: Vital Signs Temp Pulse Resp BP BP BP Pulse Ox 11/23/18 04:15 97.7 F 69 18 158/88 95 11/23/18 01:02 69 164/86 100 11/22/18 22:58 20 11/22/18 22:57 20 11/22/18 22:36 179/102 11/22/18 22:33 72 179/102 11/22/18 21:30 98.2 F 71 24 171/99 98 11/22/18 16:52 20 11/22/18 16:40 98.1 F 75 20 157/88 96 11/22/18 11:31 98.9 F 73 20 140/79 97 11/22/18 10:16 20 Intake and Output 11/22/18 11/23/18 11/23/18 23:59 07:59 15:59 Intake Total 240 600 Balance 240 600 Intake: Oral 240 Intake, Free Water 600 Other: Total, Intake Amount 240 # Voids Void 1 2 - Exam Breasts: Present: normal Cardiovascular: Present: Regular rate, Normal S1 Lungs: Present: Clear to auscultation, Normal air movement Abdomen: Present: normal appearance, soft, normal bowel sounds. Absent: diste ntion, tenderness, guarding Uterus: Present: normal, firm Extremities: Present: normal Deep Tendon Reflex Grade: Normal +2 Incision: Present: normal
[2018-11-23 09:25] VITALS: BP 183/102
== END 2018-11-23 10:44 | disposition home or self-care (01) | DRG 765 ==
LOC: TRG 12:56 → LD 13:23 → TRG 15:56 → OBSVTOIN 11-19 15:37 → APU 11-20 11:09 → LD 11-20 11:11 → OB 11-22 08:15
PROVIDERS: ADMIT Obstetrics & Gynecology; ATTEND Obstetrics & Gynecology
PROC: 10D00Z1 Extraction of Products of Conception, Low, Open Approach (ICD-10-PCS; principal; 2018-11-20)
DX: O34.211 Maternal care for low transverse scar from previous cesarean delivery (principal); O11.4 Pre-existing hypertension with pre-eclampsia, complicating childbirth; O99.354 Diseases of the nervous system complicating childbirth; O99.214 Obesity complicating childbirth; E66.9 Obesity, unspecified; G40.909 Epilepsy, unspecified, not intractable, without status epilepticus; Z37.0 Single live birth; Z91.19 Patient's noncompliance with other medical treatment and regimen; Z82.49 Family history of ischemic heart disease and other diseases of the circulatory system; Z3A.35 35 weeks gestation of pregnancy
CPT/HCPCS: 36415; 76816; 76819; 76820; 81001; 82565; 82570; 83615; 83735; 84156; 84450; 84460; 84550; 85014; 85018; 85027; 88307; G0378; J0330; J0360; J0690; J0702; J1170; J1885; J2270; J2370; J2405; J2590; J2704; J2765; J3010; J3475; J7120; J7121